=== PATIENT | female | born 1955 | race African-American/Black ===

== ENCOUNTER 2025-05-14 10:21 | Emergency (ER) | payer SELFPAY ==
[2025-05-14 10:34] VITALS: BP 167/86; PULSE 94; RESP 20; TEMP 98.1; BMI 25.9
[2025-05-14] MEDS ORDERED: KETOROLAC TROMETHAMINE 15 MG/ML VIAL ONE (10:49)
[2025-05-14] MEDS: KETOROLAC TROMETHAMINE 15 MG/ML VIAL IM ONE (11:08)
== END 2025-05-14 11:20 | disposition home or self-care (01) ==
LOC: JER 10:21 → JERFT 10:21
PROC: 3E0233Z Introduction of Anti-inflammatory into Muscle, Percutaneous Approach (ICD-10-PCS; principal; 2025-05-14)
DX: S70.02XA Contusion of left hip, initial encounter (principal); W10.9XXA Fall (on) (from) unspecified stairs and steps, initial encounter; Y93.01 Activity, walking, marching and hiking
CPT/HCPCS: 73502-TC-LT-FY; 99284-25